=== PATIENT | female | born 1985 | race Caucasian/White ===

== ENCOUNTER 2021-08-05 10:05 | Emergency (ER) | payer SELFPAY ==
[~2021-08-05] VITALS: Ht 172.7 cm; Wt 63.5 kg
== END 2021-08-05 12:28 | disposition home or self-care (01) ==
LOC: ER 10:21
DX: M79.672 Pain in left foot (principal); M79.671 Pain in right foot; M79.89 Other specified soft tissue disorders; E05.90 Thyrotoxicosis, unspecified without thyrotoxic crisis or storm
CPT/HCPCS: 99283